=== PATIENT | female | born 1965 | race Caucasian/White ===

== ENCOUNTER 2017-06-08 08:21 | Emergency (ER) | payer MEDICAID ==
[~2017-06-08] VITALS: Ht 162.6 cm; Wt 64.3 kg
[~2017-06-08 08:21] MED LIST: OMEP20CA9 PO; RANI150T9 PO
[2017-06-08 08:25] VITALS: Ht 162.6 cm; Wt 64.3 kg
[2017-06-08] MEDS ORDERED: DIPHENHYDRAMINE 25 MG CAP PO ONE (09:30)
[2017-06-08 10:03] LABS: BASOPHILS % 0.6 % (0.0-2.0); EOSINOPHILS # 0.1 10^3/ul (0.0-0.5); EOSINOPHILS % 1.5 % (0.0-7.0); HEMATOCRIT 39.9 % (37.0-47.0); HEMOGLOBIN 13.6 g/dl (12.0-16.0); LYMPHOCYTES # 1.2 10^3/ul (0.8-2.9); LYMPHOCYTES % 35.4 % (15.0-51.0); MEAN CORPUSCULAR HEMOGLOBIN 31.1 pg (29.0-33.0); MEAN CORPUSCULAR HGB CONC 34.1 g/dl (32.0-37.0); MEAN CORPUSCULAR VOLUME 91.1 fl (82.0-101.0); MEAN PLATELET VOLUME 9.3 fl (7.4-10.4); MONOCYTE # 0.3 10^3/ul (0.3-0.9); MONOCYTES % 7.4 % (0.0-11.0); NEUTROPHIL # 1.9 10^3/ul (1.6-7.5); NEUTROPHILS % 55.1 % (39.0-77.0); PLATELET COUNT 236 10^3/UL (140-415); RED BLOOD COUNT 4.38 10^6/ul (4.20-5.40); RED CELL DISTRIBUTION WIDTH 11.9 % (11.5-14.5); WHITE BLOOD COUNT 3.4 10^3/ul (4.8-10.8)
[2017-06-08 10:10] LABS: ANION GAP 11 (8-16); BLOOD UREA NITROGEN 14 mg/dl (7-20); CALCIUM 9.5 mg/dl (8.4-10.2); CARBON DIOXIDE 28 mmol/L (21-31); CHLORIDE 104 mmol/L (97-110); CREATININE 0.66 mg/dl (0.44-1.00); GLUCOSE 89 mg/dl (70-220); POTASSIUM 4.3 mmol/L (3.5-5.1); SODIUM 139 mmol/L (135-144)
--- NOTE | 2017-06-08 10:28 | RADRPT ---
PROCEDURE: XR Chest. CLINICAL INDICATION: chest pain TECHNIQUE: Single frontal view of the chest was obtained COMPARISON: None FINDINGS: The heart and mediastinum are within normal limits. The lungs are clear. There is no pleural effusion or pneumothorax. RPTAT: AA IMPRESSION: No acute disease. .Moe Chang MD, Date Time Electronically viewed and signed by .Moe Chang MD, on 06/08/2017 10:28 .S/
[2017-06-08 10:31] LABS: TROPONIN-I < 0.012 ng/ml (0.00-0.12)
[2017-06-08] MEDS ORDERED: BEN25 PO (13:06)
[2017-06-08] MEDS ORDERED: HC30CR25 TOP (13:06)
--- NOTE | 2017-06-08 13:13 | ERD ---
ER Documentation Chief Complaint Chief Complaint palpitations x5 months, facial itchiness x 4 days HPI This is a 51-year-old female that presents to the ER with palpitations for the last 5 months. Patient states that she also has associated chest pain that is pressure-like in quality. Patient was told she had high cholesterol and since then she has been working out a lot. She states that sometimes when she is working out she feels chest pressure. She denies any shortness of breath. Patient is also complaining of dry itchy skin for the last 4 days. Denies any fevers or chills. She denies any abdominal pain. ROS 12 point review of systems was done, all negative except per HPI. Medications Home Meds Active Scripts Hydrocortisone* Topical (Hydrocortisone* Topical) 2.5%-28.3 Gm Cream..g., 1 APPLIC TOP BID for 7 Days, #1 TUB Prov:VALERIE CULLEN 06/08/17 Diphenhydramine Hcl* (Benadryl*) 25 Mg Cap, 25 MG PO Q6, #30 CAP Prov:VALERIE CULLEN 06/08/17 Ranitidine Hcl* (Zantac*) 150 Mg Tablet, 150 MG PO BID Y for PAIN, #30 TAB Prov:JOSE ALFREDO JUAN PA-C 07/02/15 Omeprazole* (Prilosec*) 20 Mg Capsule.dr, 20 MG PO DAILY, #30 CAP Prov:JOSE ALFREDO JUAN PA-C 07/02/15 Allergies Allergies: Coded Allergies: No Known Allergy (Unverified , 06/08/17) PMhx/Soc Medical and Surgical Hx: pt denies Medical Hx, pt denies Surgical Hx History of Surgery: No Anesthesia Reaction: No Hx Neurological Disorder: No Hx Respiratory Disorders: No Hx Cardiac Disorders: No Hx Psychiatric Problems: No Hx Miscellaneous Medical Probl: No Hx Alcohol Use: No Hx Substance Use: No Hx Tobacco Use: No Physical Exam Vitals Vital Signs Date Time Temp Pulse Resp B/P Pulse Ox O2 Delivery O2 Flow Rate FiO2 06/08/17 08:25 98.6 60 18 140/62 99 Physical Exam GENERAL: The patient is well developed and appropriate for usual state of health , in no apparent distress. HEENT: Atraumatic. Conjunctivae are pink. Pupils equal, round, and reactive to light. Extraocular muscles are grossly intact. Bilateral tympanic membranes are clear with no evidence of erythema, effusion or dulling of the light reflex. The oropharynx is clear with no erythema or exudates. NECK: C-spine is soft and supple. There is no cervical lymphadenopathy. CHEST: Clear to auscultation bilaterally. There are no rales, wheezes or rhonchi. HEART: Regular rate and rhythm. No murmurs, clicks, rubs or gallops. ABDOMEN: Soft, nontender and nondistended. Good bowel sounds. No rebound or guarding. No gross peritonitis. No gross organomegaly or masses. No Reyna sign or McBurney point tenderness. No pulsatile masses. BACK: No midline or flank tenderness. EXTREMITIES: Equal pulses bilaterally. There is no peripheral clubbing, cyanosis or edema. No focal swelling or erythema. Full range of motion. Grossly neurovascularly intact. NEURO: Alert and oriented. Cranial nerves II through XII are intact. Motor strength in all 4 extremities with 5/5 strength. Sensation grossly intact. Normal speech and gait. SKIN: There is no apparent rash or petechia. The skin is warm and dry. Result Diagram: 06/08/1725 06/08/1725 Results 24 hrs Laboratory Tests Test 06/08/17 09:25 White Blood Count 3.410^3/ul Red Blood Count 4.3810^6/ul Hemoglobin 13.6g/dl Hematocrit 39.9% Mean Corpuscular Volume 91.1fl Mean Corpuscular Hemoglobin 31.1pg Mean Corpuscular Hemoglobin Concent 34.1g/dl Red Cell Distribution Width 11.9% Platelet Count 12154^3/UL Mean Platelet Volume 9.3fl Neutrophils % 55.1% Lymphocytes % 35.4% Monocytes % 7.4% Eosinophils % 1.5% Basophils % 0.6% Nucleated Red Blood Cells % 0.0/100WBC Neutrophils # 1.910^3/ul Lymphocytes # 1.210^3/ul Monocytes # 0.310^3/ul Eosinophils # 0.110^3/ul Basophils # 0.010^3/ul Nucleated Red Blood Cells # 0.010^3/ul Sodium Level 139mmol/L Potassium Level 4.3mmol/L Chloride Level 104mmol/L Carbon Dioxide Level 28mmol/L Anion Gap 11 Blood Urea Nitrogen 14mg/dl Creatinine 0.66mg/dl Glucose Level 89mg/dl Calcium Level 9.5mg/dl Troponin I < 0.012ng/ml Thyroid Stimulating Hormone (TSH) 1.400MIU/L Current Medications Medications (Trade) Dose Ordered Sig/Anupama Route PRN Reason Start Time Stop Time Status Last Admin Dose Admin Diphenhydramine HCl (Benadryl) 25 mg ONCE ONCE PO 06/08/17 09:30 06/08/17 09:31 DC 06/08/17 09:16 Procedures/MDM Differential diagnosis includes but is not limited to; STEMI, dissection, pneumothorax, PE, esophageal rupture, tamponade, pneumonia, pericarditis, GERD, musculoskeletal, endocarditis, anxiety. EKG was taken [address] elevation no T-wave inversion this EKG was read by . This time etiology of patient 's palpitations and chest pain is unknown, however suspicion for acute cardiac etiology is low. Patient is extremely well-appearing and lives a healthy lifestyle of working out every day and eating healthy. There is factors are very low. For pulmonary embolism is low, I doubt dissection or AAA. Is afebrile and well-appearing I doubt endocarditis. To follow-up with PCP within 1-2 days and see a movie theater manager as soon as possible as she has had these symptoms for the last 5 months, I told patient she would benefit from a Holter monitor or even an echocardiogram which can be done on an outpatient basis. The patient's rash, she does have dry skin, she will be sent home with Benadryl and with hydrocortisone. Patient should return to ER sooner if symptoms worsen. My medical decision making sure with the patient she understands and agrees with plan. Departure Diagnosis: Primary Impression: Rash Additional Impression: Palpitations Condition: Stable Patient Instructions: Palpitations Additional Instructions: Llame al doctor JADON y patrice bernadine ZEE PARA DENTRO DE 1-2 BRIGHT.Dgale a la secretaria que nosotros le instruimos hacer esta zee.Avise o llame si serrato condicin se empeora antes de la zee. Regresa aqui si peor o no mejor. VALERIE CULLEN Jun 08, 2017 13:13
== END 2017-06-08 13:18 | disposition home or self-care (01) ==
LOC: FTE 08:21
DX: R21 Rash and other nonspecific skin eruption (principal)
CPT/HCPCS: 36415; 71010; 80048; 84443; 84484; 85025; 93005; Z7502; Z7610